=== PATIENT | female | born 1980 | race Caucasian/White ===

== ENCOUNTER 2016-08-06 11:54 | Emergency (ER) | payer OTHER ==
[~2016-08-06] VITALS: Ht 177.8 cm; Wt 76.2 kg
[2016-08-06 13:09] VITALS: BP 145/67
== END 2016-08-06 13:09 | disposition home or self-care (01) ==
LOC: ED 11:54
DX: D17.22 Benign lipomatous neoplasm of skin and subcutaneous tissue of left arm (principal); R03.0 Elevated blood-pressure reading, without diagnosis of hypertension; Z79.899 Other long term (current) drug therapy; Z88.1 Allergy status to other antibiotic agents
CPT/HCPCS: J2001